=== PATIENT | female | born 1965 | race African-American/Black ===

== ENCOUNTER → 2017-05-21 | Outpatient (CLI) | payer OTHER ==
[2017-05-21 15:29] LABS: ABSOLUTE EOSINOPHILS # (AUTO) 0.1 10^3/uL (0.0-0.6); ABSOLUTE LYMPHOCYTES (AUTO) 2.2 10^3/uL (0.5-4.7); ABSOLUTE MONOCYTES (AUTO) 0.4 10^3/uL (0.1-1.4); BASOPHILS % (AUTO) 0.5 % (0-2); EOSINOPHILS % (AUTO) 1.5 % (0-6); HEMOGLOBIN 10.9 g/dL (12.0-15.5); HGB HCT DIFFERENCE -1.3; LYMPHOCYTES % (AUTO) 38.1 % (13-45); MEAN CORPUSCULAR HEMOGLOBIN 26.1 pg (27.0-33.4); MEAN CORPUSCULAR HGB CONC 32.1 g/dL (32.0-36.0); MEAN CORPUSCULAR VOLUME 81 fl (80-97); MONOCYTES % (AUTO) 7.5 % (3-13); RED BLOOD COUNT 4.18 10^6/uL (3.72-5.28); RED CELL DISTRIBUTION WIDTH 13.9 % (11.5-14.0); SEGMENTED NEUTROPHILS % (AUTO) 52.4 % (42-78); WHITE BLOOD COUNT 5.8 10^3/uL (4.0-10.5)
[2017-05-21 16:01] LABS: ALANINE AMINOTRANSFERASE 20 U/L (9-52); ALBUMIN 3.7 g/dL (3.5-5.0); ALKALINE PHOSPHATASE 111 U/L (38-126); ANION GAP 8 (5-19); ASPARTATE AMINO TRANSFERASE 16 U/L (14-36); BILIRUBIN,DIRECT 0.3 mg/dL (0.0-0.4); BILIRUBIN,TOTAL 0.4 mg/dL (0.2-1.3); BLOOD UREA NITROGEN 15 mg/dL (7-20); C-REACTIVE PROTEIN 18.5 mg/L (<10.0); CALCIUM 9.2 mg/dL (8.4-10.2); CARBON DIOXIDE 28 mmol/L (22-30); CHLORIDE 103 mmol/L (98-107); GLUCOSE 135 mg/dL (75-110); POTASSIUM 4.9 mmol/L (3.6-5.0); SODIUM 138.7 mmol/L (137-145); TOTAL PROTEIN 7.6 g/dL (6.3-8.2)
[2017-05-21 16:12] LABS: ERYTHROCYTE SEDIMENTATION RATE 62 mm/hr (0-30)
--- NOTE | 2017-05-21 17:25 | RADIOLOGY REPORT (SQ) ---
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 TECHNIQUE: AP, lateral and oblique without weight bearing radiographic images acquired of the left f oot. LIMITATIONS: None. FINDINGS: MINERALIZATION: Normal. BONES: No acute fracture. No obvious osteomyelitis. 1st MTP degenerative changes. JOINTS: No other joints involved. SOFT TISSUES: Marker along the plantar surface of the foot. No foreign body. OTHER: No other significant finding. IMPRESSION: Mild 1st metatarsal phalangeal degenerative changes. Soft tissue markers are along the plantar surface of the foot. TECHNICAL DOCUMENTATION: JOB ID: [id number] [employer]- All Rights Reserved
== END ==
LOC: WC 14:28
PROVIDERS: ATTEND Preventive Medicine Undersea and Hyperbaric Medicine
DX: L97.222 Non-pressure chronic ulcer of left calf with fat layer exposed (principal); L97.522 Non-pressure chronic ulcer of other part of left foot with fat layer exposed
CPT/HCPCS: 36415; 80053; 83036; 85025; 85652; 86140

== ENCOUNTER → 2017-06-04 | Outpatient (CLI) | payer OTHER ==
--- NOTE | 2017-06-04 16:23 | XCELERA REPORT ---
[address] [address] Lower Extremity Arterial Evaluation Name: GUNNAR BARBA Age: 51 yrs Gender: Female : 1965 Patient Status: Outpatient Patient Location: Study Date: 06/04/2017 09:19 AM Procedure: A color flow and duplex scan of the lower extremity arteries was performed bilaterally with velocity and waveform anaylsis. Ankle brachial indicies performed. Reason For Study: ULCER Ordering Physician: INOCENCIA FRANKLIN Performed By: Santos Harris Measurements and Calculations Right Left INSPECTOR BARREL PSV 123.4 142.3 cm/sec Prox PFA PSV -112.4 -96.8 cm/sec Dist SFA PSV -96.6 -116.3 cm/sec Dist Pop A PSV 95.9 125.1 cm/sec Dist NAOMI PSV 104.2 150.8 cm/sec Mid [employer] EDUCATOR PSV 31.4 42.7 cm/sec Zackery Pedis PSV 109.5 125.0 cm/sec Right Side Arterial Evaluation Normal velocity and triphasic waveforms noted from the Common Femoral artery to the Anterior Tibial artery. Occluded Posterior Tibial with no significant reconstitution . Biphasic Dorsalis Pedis. Occlusion as noted. Ankle Brachial index is 1.17. In non occluded Posterior Tibial artery. Left Side Arterial Evaluation Normal velocity and triphasic waveforms noted from the Common Femoral artery to the Popliteal artery. Occluded Posterior Tibial with no significant reconstitution . Biphasic Anterior Tibial artery. Occlusion as noted. Ankle Brachial index was not obtainable, non compressible. Occluded Posterior Tibial artery. Interpretation Summary Mild hemodynamically significant lesions in the right lower extremity only, on duplex imaging, at rest. Moderate hemodynamically significant lesions in the left lower extremity only, on duplex imaging, at rest. Fairly well preserved apparent distal vascularity in spite of Atherosclerotic disease. : INOCENCIA FRANKLIN > Oskar Morales
== END ==
LOC: SP 09:08
PROVIDERS: ATTEND Preventive Medicine Undersea and Hyperbaric Medicine
DX: L97.522 Non-pressure chronic ulcer of other part of left foot with fat layer exposed (principal)
CPT/HCPCS: 93925